=== PATIENT | female | born 1985 | race Caucasian/White ===

== ENCOUNTER 2018-01-06 21:09 | Emergency (ER) | payer MEDICAID, OTHER ==
[~2018-01-06] VITALS: Ht 591.1 cm; Wt 122.7 kg
[2018-01-06] MEDS ORDERED: ketorolac trometh. 30mg/ml inj. IV ONE (21:40)
[2018-01-06] MEDS ORDERED: proCHLORperazine 10 MG/2 ml inj IV ONE (21:40)
[2018-01-06] MEDS ORDERED: diphenhydrAMINE 50 mg/ml inj IV ONE (21:40)
[2018-01-06] MEDS ORDERED: normal saline 1000ML IV soln IVB ONE (22:20)
[2018-01-06 22:45] LABS: URINE HCG NEGATIVE (NEG)
[2018-01-06 23:38] VITALS: BP 138/76
== END 2018-01-06 23:39 | disposition home or self-care (01) ==
LOC: ER 21:10
DX: G43.909 Migraine, unspecified, not intractable, without status migrainosus (principal); K08.89 Other specified disorders of teeth and supporting structures; Z72.89 Other problems related to lifestyle
CPT/HCPCS: 70450; 81025; 96374; 96375; 99284; J0780; J1200; J1885; J7030

== ENCOUNTER 2018-01-07 19:43 | Emergency (ER) | payer BC, OTHER ==
[~2018-01-07] VITALS: Ht 172.7 cm; Wt 106.5 kg
[2018-01-07 20:29] VITALS: BP 147/114
[2018-01-07] MEDS ORDERED: proCHLORperazine 10mg tablet PO ONE (20:55)
[2018-01-07] MEDS ORDERED: ketorolac trometh inj. 60 MG/2 ML VIAL IM ONE (20:55)
[2018-01-07] MEDS ORDERED: SUMAtriptan succ. 6 MG/0.5ml vial SQ ONE (20:55)
[2018-01-07] MEDS ORDERED: diphenhydrAMINE 25mg capsule PO ONE (20:55)
== END 2018-01-07 22:15 | disposition home or self-care (01) ==
LOC: ER 19:44
DX: G43.909 Migraine, unspecified, not intractable, without status migrainosus (principal); R11.2 Nausea with vomiting, unspecified; R19.7 Diarrhea, unspecified; K08.89 Other specified disorders of teeth and supporting structures; F17.200 Nicotine dependence, unspecified, uncomplicated
CPT/HCPCS: 96372; 99284; J1885; J3030; Q0163; Q0164